=== PATIENT | male | born 1935 | race Caucasian/White ===

== ENCOUNTER → 2016-06-24 | Outpatient (CLI) | payer MEDICARE ==
[~2016-06-24] MED LIST: ASPIRIN FOR CHI81 MG PO; BACTRIM DS 8001 TA1 PO; CYCLOBENZAPRINE10 MG PO; HEP-FORTE1 CAP PO; HYDROCODONE BIT1 T11 PO; KEFLEX500 MG PO; LEVOTHYROXINE0.1 MG PO; LOSARTAN POTASS1 TA2 PO; MOTRIN 600 MG E4 TAB PO; NORCO 5-325 TA1 EACH PO
== END | disposition home or self-care (01) ==
LOC: RAD 10:47
DX: Z01.818 Encounter for other preprocedural examination (principal); J44.9 Chronic obstructive pulmonary disease, unspecified; J45.909 Unspecified asthma, uncomplicated

== ENCOUNTER → 2017-11-14 | Outpatient (CLI) | payer MEDICARE | END | disposition home or self-care (01) | LOC: RAD 11:26 | DX: J45.909 Unspecified asthma, uncomplicated (principal); I51.7 Cardiomegaly; M25.473 Effusion, unspecified ankle ==

== ENCOUNTER 2018-04-09 16:31 | Emergency (ER) | payer MEDICARE ==
[~2018-04-09] VITALS: Ht 180.3 cm; Wt 122.5 kg
--- NOTE | ~2018-04-09 | EKG ---
[place], [place] ELECTROCARDIOGRAM REPORT NAME: HOLLY VIZCARRA UNIT #: [id number] ROOM: DOCTOR: ANA DRAFT REPORT BIRTHDATE: [birth year] [facility] Test Date: 2018-04-09 Test Time: 17:37:34 Pat Name: HOLLY VIZCARRA Department: Room: Gender: [employer]: : 1935 Requested By: CLAY PEREZ Order Number: [id number] Reading MD: Seferino Carlton MD Measurements Intervals [place] Rate: 93 P: 53 NV: 169 QRS: 0 QRSD: 103 T: 55 QT: 343 QTc: 427 Interpretive Statements Sinus rhythm Baseline wander in lead(s) V2 Electronically Signed On 04-10-2018 6:46:05 PST by Seferino Carlton MD CM:EKGRPT:ELECTROCARDIOGRAM REPORT [id number] CLAY LANIER DRAFT REPORT CLAY PEREZ DO
[2018-04-09 17:41] LABS: BASO # 0.1 10*3/uL (0.0-0.1); BASO % 0.6 % (0.0-1.0); EOS % 0.3 % (1.0-4.0); HEMATOCRIT 44.7 % (42.0-52.0); HEMOGLOBIN 15.1 g/dl (14.0-18.0); LYMPH # 1.2 10*3/uL (1.3-4.4); MEAN CELL VOLUME 89.8 fl (80.0-94.0); MEAN CORPUSCULAR HGB 30.3 pg (27.0-31.0); MEAN CORPUSCULAR HGB CONC 33.8 g/dl (33.0-37.0); MEAN PLATELET VOLUME 9.8 fl (9.6-12.3); MONO # 1.3 10*3/uL (0.1-1.0); MONO % 14.8 % (3.0-9.0); NEUT # 6.3 10*3/uL (2.3-7.9); PLATELET COUNT AUTOMATED 197 10*3/uL (130-400); RED BLOOD COUNT 4.98 10*6/uL (4.50-5.90); RED CELL DISTRI WIDTH 13.7 % (0-14.5); WHITE BLOOD COUNT 8.8 10*3/uL (4.8-10.8)
[2018-04-09 18:02] LABS: ACT PARTIAL THROMBO TIME 26.3 SECONDS (20.8-31.5); ALBUMIN 3.2 gm/dl (3.1-4.5); ALKALINE PHOSPHATASE 62 U/L (45-117); BUN 25 mg/dl (7-24); CHLORIDE 107 mmol/L (98-107); CREATININE 0.93 mg/dL (0.70-1.30); INTERNATIONAL NORM RATIO 1.1 (2.0-3.5); LIPASE 235 U/L (73-393); POTASSIUM 3.7 mmol/L (3.5-5.1); SGOT/AST 31 IU/L (3-35); SGPT/ALT 27 U/L (12-78); SODIUM 139 mmol/L (136-145); TOTAL PROTEIN 7.4 gm/dL (6.4-8.2)
[2018-04-09 18:04] LABS: TROPONIN I < 0.015 ng/ml (<0.045)
[2018-04-09] MEDS ORDERED: PREDNISONE50 MG PO (18:48)
[2018-04-09] MEDS ORDERED: DOXYCYCLINE100 M3 PO (18:48)
== END 2018-04-09 18:53 | disposition home or self-care (01) ==
LOC: ED 16:31
PROVIDERS: Emergency Medicine
DX: J20.9 Acute bronchitis, unspecified (principal); M54.5 Low back pain; J44.9 Chronic obstructive pulmonary disease, unspecified; Z87.442 Personal history of urinary calculi; Z90.49 Acquired absence of other specified parts of digestive tract; Z79.899 Other long term (current) drug therapy; Z79.82 Long term (current) use of aspirin

== ENCOUNTER → 2022-09-15 | Outpatient (CLI) | payer MEDICARE ==
[~2022-09-15] MED LIST changes: +DOXYCYCLINE100 M3 PO; +PREDNISONE50 MG PO
== END | disposition home or self-care (01) ==
LOC: RAD 10:40
PROVIDERS: ATTEND Internal Medicine
DX: M47.816 Spondylosis without myelopathy or radiculopathy, lumbar region (principal); Z96.642 Presence of left artificial hip joint

== ENCOUNTER 2024-12-27 10:24 | Emergency (ER) | payer MEDICARE ==
[~2024-12-27] VITALS: Ht 177.8 cm; Wt 108.9 kg
== END 2024-12-27 12:25 | disposition home or self-care (01) ==
LOC: ED 10:24
DX: S90.31XA Contusion of right foot, initial encounter (principal); Z79.82 Long term (current) use of aspirin; Z87.442 Personal history of urinary calculi; W20.8XXA Other cause of strike by thrown, projected or falling object, initial encounter; Y92.89 Other specified places as the place of occurrence of the external cause; Y99.8 Other external cause status